=== PATIENT | female | born 1950 | race African-American/Black ===

== ENCOUNTER 2016-11-05 15:09 | Observation (INO) | payer MEDICARE ==
[~2016-11-05] VITALS: Ht 160 cm; Wt 66.4 kg
--- NOTE | ~2016-11-05 | HEMODYNAMI ---
PATIENT:SANTOS JOE MEDICAL RECORD: [id number] : 46 LOC[facility] [id number] ADMISSION DATE: 11/05/16 Generatedon:11/06/201610:51 Patient name: SANTOS JOE Patient #: [id number] : 1950 Date of study: 11/06/2016 Page: Of Hemodynamic Procedure Report Patient Data Patient Demographics Procedure consent was obtained First Name: SANTOS Gender: Female Last Name: TATYANA : 1950 Patient #: [id number] Age: 66 year(s) Race: Black SSN: [id number] Additional ID: [id number] Contact details Address: [address] [place] [address] State: [place] City: [place] Zip code: [address] Past Medical History Allergies Allergen Reaction Date Comments Reported Other allergy 11/06/2016 codeine Admission Admission Data Admission Date: 11/05/2016 Admission Time: 19:13 Arrival Date: 11/05/2016 Arrival Time: 19:13 Admit Source: Other Insurance Payor: Medicare Room #: D.2122 Height (in.): 63 BSA: 1.69 (m2) Height (cm.): 160.02 BMI: 25.86 (kg/m2) Weight (lbs.): 146 Weight (kg.): 66.22 Lab Results Lab Result Date: 11/06/2016 Lab Result Time: 0:00 Biochemistry Name Units Result Min Max BUN mg/dl 22 --(----)-* 7 18 Creatinine mg/dl 1.7 --(----)-* 0.6 1.3 CBC Name Units Result Min Max Hemoglobin g/dl 11.9 *-(----)-- 13.5 17.5 Procedure Procedure Types Cath Procedure Diagnostic Procedure LHC LHC w/Coronaries Peripheral Cath Diagnostic Procedure Cath Peripheral Four Vessel Arteriogram Procedure Description Procedure Date Procedure Date: 11/06/2016 Procedure Start Time: 10:41 Procedure End Time: 10:48 Procedure Staff Name Function Da Lyons MD Performing Physician Val Aguirre RT Scrub Jet Olmedo RN Nurse Janel Keating RT Monitor Indication Angina Procedure Data Cath Procedure Fluoroscopy Diagnostic fluoroscopy Total fluoroscopy Time: 1.6 time: 1.6 min min Diagnostic fluoroscopy Total fluoroscopy dose: 335 dose: 335 mGy mGy Contrast Material Contrast Material Type Amount (ml) Isovue 370 77 Entry Location Entry Primary Successful Side Size Upsize Upsize Entry Closure Succes sful Closure Location (Fr) 1 (Fr) 2 (Fr) Remarks Device Remarks Femoral Right 5 Fr Vascade artery Closure System Estimated blood loss: 5 ml Procedure Complications No complications Procedure Medications Medication Administration Route Dosage Oxygen NC 2 l/min Heparin Flush Bag added to field 2 bags (1000units/500ml NS) 0.9% NaCl I.V. 100 ml/hr Benadryl I.V. 50 mg Radial Cocktail added to field 1 syringe (Verapomil 2mg/Nitro 400mcg/Heparin 1500units) Fentanyl I.V. 50 mcg Versed I.V. 1 mg Fentanyl I.V. 50 mcg Versed I.V. 1 mg Hemodynamics Rest BSA: 1.69 (m2) HGB: 11.9 (g/dl) O2 Consumption: Estimated: 153.8 (ml/min) O2 Con sumption indexed: Estimated:91.01 (ml/min/m) Heart Rate: 66 (bpm) Snapshots Pre Cath Intra NCS Post Cath Vital Signs Time Heart Resp SPO2 NIBP (mmHg) Rhythm Pain Sedation Rate (ipm) (%) Status Level (bpm) 10:23:20 61 18 60 144/66(89) NSR 0 (11) 10(A) , No pain 10:27:42 61 20 97 90/56(74) NSR 0 (11) 10(A) , No pain 10:32:35 62 17 98 119/63(99) NSR 0 (11) 10(A) , No pain 10:36:47 64 18 100 134/59(90) NSR 0 (11) 10(A) , No pain 10:41:05 63 17 100 121/61(104) NSR 0 (11) 9(A) , No pain 10:45:19 63 17 100 98/57(73) NSR 0 (11) 9(A) , No pain 10:48:42 62 18 99 103/48(80) NSR 0 (11) 9(A) , No pain Medications Time Medication Route Dose Verified Delivered Reason Notes Eff ectiveness by by 10:28:01 Oxygen NC 2 l/min Jet Chaudhary Per Honorio Olmedo RN physician RN 10:28:09 Heparin Flush added 2 bags Jet Chaudhary used for Bag to Honorio Olmedo cooperage shop supervisor (1000units/500ml field RN NS) 10:29:00 0.9% NaCl I.V. 100 Jet Veronicay Per ml/hr Honorio Olmedo RN physician RN 10:29:10 Benadryl I.V. 50 mg Jet Chaudhary Per Honorio Olmedo RN physician RN 10:29:20 Radial Cocktail added 1 Jet Chaudhary used for (Verapomil to syringe Honorio Olmedo cooperage shop supervisor 2mg/Nitro field RN 400mcg/Heparin 1500units) 10:40:13 Fentanyl I.V. 50 mcg Jet Chaudhary for Honorio Olmedo RN sedation RN 10:40:19 Versed I.V. 1 mg Jet Veronicay for Honorio Olmedo RN sedation RN 10:42:17 Fentanyl I.V. 50 mcg Jet Chaudhary for Honorio Olmedo RN sedation RN 10:42:21 Versed I.V. 1 mg Jet Chaudhary for Honorio Olmedo RN sedation music industry intern Log Time Note 10:00:03 Jet Olmedo RN sent for patient. Start room use. 10:09:41 Diagnostic Cath Status : Elective 10:10:00 Indication : Angina 10:10:10 Time tracking: Regular hours 10:10:14 Plan of Care:Hemodynamics will remain stable., Cardiac rhythm will remain stable., Comfort level will be maintained., Respiratory function will remain adequate., Patient/ family verbilizes understanding of procedure., Procedure tolerated without complication., Recovers from procedure without complications.. 10:10:33 Informed consent obtained and on chart 10:10:48 Arrival Date: 11/05/2016 7:13:00 PM 10:10:55 Admit Source: Other 10:10:56 Insurance Payor : Medicare 10:11:28 Lab Result : Creatinine 1.7 mg/dl 10::28 Lab Result : BUN 22 mg/dl 10:11:28 Lab Result : Hemoglobin 11.9 g/dl 10:15:01 Patient received from Med II to CCL 1 Alert and oriented. Tansferred to table in Supine position. 10:15:03 Warm blankets applied, and byron hugger turned on for patient comfort. 10:15:03 Correct patient and procedure confirmed by team. 10:15:05 ECG and BP/O2 sat monitors applied to patient. 10:22:01 Vital chart was started 10::29 Baseline sample Acquired. 10::35 Rhythm: sinus rhythm , paced 10::38 Full Disclosure recording started 10::42 H&P Date Dictated: 11/06/2016 New H&P dictated by physician.. 10:26:43 Pre-procedure instructions explained to patient. 10::44 Pre-op teaching completed and patient verbalized understanding. 10::45 Family in waiting room. 10::46 Patient NPO since Midnight. 10::57 Patient allergic to Other allergycodeine 10:27:00 Is the patient allergic to Iodine/contrast media? No. 10:27:01 Was the patient premedicated? No 10:27:01 Is patient on blood thinner?Yes 10:27:05 ACC The patient was administered the following blood thiners within the last 24 hours: ACCPlavix 10:27:07 Patient diabetic? Yes. 10:27:08 If diabetic: On Metformin? No 10:27:12 Previous problem with sedation/anesthesia? No ? 10:27:14 Snore? No 10:27:15 Sleep apnea? No 10:27:16 Deviated septum? No 10:27:17 Opens mouth fully? Yes 10:27:18 Sticks out tongue? Yes 10:27:20 Airway obstruction? No ? 10:27:25 Dentures? Yes in tight 10:27:29 Pre procedure: right dorsailis pedis pulse 1+ Palpable, but thready & weak; easily obliterated 10:27:31 Patient pain scale 0/10 ?. 10:27:39 IV patent on arrival in left forearm with 0.9% NaCl at KVO. 10:27:42 Lab results completed and on chart. 10:27:46 Right Radial & Right Groin area was prepped with chlora-prep and draped in sterile fashion 10:27:47 Alarms reviewed by R. N. 10::47 Sharps counted by scrub and verified by R.N. 10:28:01 Oxygen 2 l/min NC was given by Jet Olmedo RN; Per physician; 10:28:09 Heparin Flush Bag (1000units/500ml NS) 2 bags added to field was given by Jet Olmedo RN; used for procedure; 10::20 Patient Height : 160.02 cm 10::24 Patient Weight : 66.22 kg 10:28:50 Baseline sample Acquired. 10:29:00 0.9% NaCl 100 ml/hr I.V. was given by Jet Olmedo RN; Per physician; 10:29:10 Benadryl 50 mg I.V. was given by Jet Olmedo RN; Per physician; 10:29:20 Radial Cocktail (Verapomil 2mg/Nitro 400mcg/Heparin 1500units) 1 syringe added to field was given by Jet Olmedo RN; used for procedure; 10:34:41 Physician paged 10:34:43 Zero performed for pressure channel P1 10:39:53 Physician arrived 10:39:53 --------ALL STOP TIME OUT------ 10:39:54 Final Timeout: patient, procedure, and site verified with staff and physician. All members of the team are in agreement. 10:39:57 Right Radial & Right Groin site verified by team. 10:39:59 Physical assessment completed. ASA score P 2 - A patient with mild systemic disease as per Da Lyons MD. 10:40:02 Sedation plan: IV Moderate Sedation Versed, Fentanyl 10:40:09 Use device set Radial Dx 10:40:10 Acist Syringe opened to sterile field. 10:40:11 Cardinal Cath Pack opened to sterile field. 10:40:11 Bag Decanter opened to sterile field. 10:40:12 St Arvind 260cm J .035 wire opened to sterile field. 10:40:13 Fentanyl 50 mcg I.V. was given by Jet Olmedo RN; for sedation; 10:40:13 Acist Hand Control opened to sterile field. 10:40:14 Acist Manifold opened to sterile field. 10:40:15 Tegaderm 4 x 4 opened to sterile field. 10:40:19 Versed 1 mg I.V. was given by Jet Olmedo RN; for sedation; 10:40:21 Procedure started. 10:41:12 Dr Lyons deciding to gain femoral access; adding 4 vessel procedure 10:41:30 Terumo 5Fr [place] Sheath opened to sterile field. 10:41:37 Cordis Infinity 5Fr Multipack catheter opened to sterile field. 10:41:46 Local anesthetic to right femoral artery with Lidocaine 2% by Da Lyons MD.INITIAL ACCESS ONLY 10:41:54 A 5 Fr sheath was inserted into the Right Femoral artery 10:42:03 5 Fr pigtail guide catheter was inserted over the wire 10:42:09 LV gram done using QUIJANO 10:42:12 Injector settings: Ml/sec: 5, Volume: 15, 10:42:17 Fentanyl 50 mcg I.V. was given by Jet Olmedo RN; for sedation; 10:42:19 EF : 20 % 10:42:21 Versed 1 mg I.V. was given by Jet Olmedo RN; for sedation; 10:42:21 Catheter removed. 10:42:25 5 Fr jl 4 guide catheter was inserted over the wire 10:42:30 LCA angiography performed. 10:42:32 Injector settings: Ml/sec: 3, Volume: 6, 10:43:22 Catheter removed. 10:43:30 5 Fr 3drc guide catheter was inserted over the wire 10:44:16 RCA angiography performed. 10:44:24 Injector settings: Ml/sec: 3, Volume: 6, 10:44:35 Bilateral carotid angiography performed. 10:44:51 Procedure type changed to Cath procedure, Diagnostic procedure, LHC, LHC w/Coronaries, Peripheral Cath Diagnostic Procedure, Cath Peripheral, Four Vessel Arteriogram 10:46:00 Catheter removed. 10:46:07 Vascade 5Fr Closure Device opened to sterile field. 10:46:21 Sheath removed intact; hemostasis achieved with Vascade Closure System to the Right Femoral artery. 10:46:23 Procedure ended.(Physican Out) 10:47:13 Fluoroscopy time 01.60 minutes. 10:47:18 Fluoroscopy dose: 335 mGy 10:47:18 Flurop Dose total: 335 10:47:23 Contrast amount:Isovue 370 77ml. 10:47:25 Sharps counted by scrub and verified by R.N. 10:47:27 Insertion/operative site no bleeding no hematoma. 10:47:30 Post-op/insertion site Right Femoral artery dressed using a 4 x 4 and Tegaderm. 10:47:32 Post right femoral artery:stable 10:47:34 Post Procedure Pulses reassessed and unchanged 10:47:36 Post procedure rhythm: unchanged. 10:47:38 Estimated blood loss: 5 ml 10:47:39 Post procedure instruction explained to patient.Patient verbalizes understanding. 10:47:40 Patient needs reinforcement of post procedure teaching. 10:47:41 Procedure and supply charges have been captured, reviewed, submitted and are correct. 10:47:53 Procedure Complication : No complications 10:48:02 Vital chart was stopped 10:48:04 See physician's report for complete and final results. 10:48:07 Report given to [facility]. 10:48:09 Patient transfered to [facility] with Stretcher. 10:48:11 Procedure ended. 10:48:11 Full Disclosure recording stopped 10:48:17 End room use (Document Last) Device Usage Item Name Manufacture Quantity Catalog Number Hospital Part Current Minimal Lot# / Charge Number Stock Stock Serial# Code Acist Acist 1 98950 201076 143742 950606 20 Syringe Medical Systems Inc Cardinal Cardinal 1 [id number] 594185 32078 437138 5 Cath Pack Health Bag Microtek 1 2002S 155302 39082 413322 [address] Arvind 1 [id number] 666676 139820 547604 30 260cm J .035 wire Acist Acist 1 86862 670028 903886 072409 5 Hand Medical Control Systems Inc Acist Acist 1 49794 657173 618753 213046 5 Manifold Medical Systems Inc Tegaderm 3M 1 1626W 843536 610193 263046 5 4 x 4 Terumo Terumo 1 [id number] 205317 801961 279089 40 5Fr [place] Sheath Cordis Cardinal 1 [id number] 220202 19980 943303 30 ZANK.mobi 5Fr Multipack catheter Vascade Cardiva 1 [id number] 482142 53649 079860 10 5Fr Medical, Closure Inc. Device Signature Audit [place] Stage Time Signature Unsigned Intra-Procedure 11/06/2016 Janel Keating 10:51:24 AM RT(R) Signatures Monitor : Janel Keating RT Signature : Date : Time : [place] [id number] [facility] [place] [address]
[2016-11-05 17:31] LABS: BASOPHILS 1.4 % (0.0-2.0); HEMATOCRIT 37.9 % (36.0-48.0); HEMOGLOBIN 11.9 g/dL (12-16); IMMATURE GRANULOCYTES 0.2 % (0-5); MCH 30.3 pg (26.0-34.0); MCHC 31.4 g/dL (31.0-37.0); MCV 96.4 fL (80.0-100.0); MEAN PLATELET VOLUME 12.7 fL (7.4-10.4); NEUTROPHILS 64.4 % (40-80); PLATELET COUNT 69 10x3/uL (130-400); RBC 3.93 10x6/uL (4.00-5.40); RDW 14.1 % (11.5-14.5); WBC 5.6 10x3/uL (4.8-10.8)
[2016-11-05 17:52] LABS: ALBUMIN 3.7 g/dL (3.4-5.0); BILIRUBIN - TOTAL 0.63 mg/dL (0.2-1.3); CALCIUM 9.2 mg/dL (8.5-10.1); CARBON DIOXIDE 31.6 mmol/L (21.0-32.0); CREATININE - SERUM 1.7 mg/dL (0.6-1.3); POTASSIUM - SERUM 3.6 mmol/L (3.5-5.1); PROTEIN - SERUM 6.7 g/dL (6.4-8.2)
[2016-11-05 18:06] LABS: TROPONIN-I 0.463 ng/mL (0.000-0.060)
[2016-11-05 18:22] LABS: APTT 29.8 SECONDS (22.8-39.4)
[2016-11-05 18:24] LABS: INR 1.26 (0.85-1.17); PROTIME 15.7 SECONDS (11.6-15.0)
[2016-11-05 19:09] LABS: CKMB 3.6 U/L (0.0-3.6); CREATINE KINASE 183 UL (21-215)
--- NOTE | 2016-11-05 20:03 | NUR ---
REPORT CALLED FROM ER FROM SELAM VENEGAS. STATES THAT PT WAS GIVEN ORDERED LISINOPRIL, PLAVIX, LOVENOX, AND FUROSEMIDE WHILE IN ER. PT NOW ENROUTE TO ROOM 2121 FROM ER.
--- NOTE | 2016-11-05 20:15 | NUR ---
ADMITTED TO ROOM 2122 VIA WHEELCHAIR. ADMISSION ASSESSMENT/HISTORY INITIATED. HOME MEDS REVIEWED. ORIENTATION TO ROOM. INITIATE PLAN OF CARE.
[2016-11-05 21:48] VITALS: BP 150/68
[2016-11-06 00:28] VITALS: BP 146/86; Ht 160 cm; Wt 66.4 kg
[2016-11-06 00:30] VITALS: BP 113/50
[2016-11-06 04:30] VITALS: BP 147/50
--- NOTE | 2016-11-06 06:30 | NUR ---
PT HAS RESTED AND IS TALKING ABOUT THE OF HER SISTER. VOICING NO PAIN OR DISCOMFORT. SALINE LOCK TO LEFT HAND. CPOC. NPO UNTIL SEEN BY PROCESS DEVELOPMENT ENGINEER.
--- NOTE | 2016-11-06 07:15 | NUR ---
ASSESSMENT DONE. DENIES NEEDS.
[2016-11-06 08:22] VITALS: BP 125/68
[2016-11-06] MEDS ORDERED: NEURONTIN 300300 MG PO (08:41)
[2016-11-06] MEDS ORDERED: MEGACE40 MG PO (08:42)
[2016-11-06] MEDS ORDERED: ALDACTONE25 MG PO (08:42)
[2016-11-06] MEDS ORDERED: COREG12.5 MG PO (08:42)
[2016-11-06] MEDS ORDERED: PRAVASTATIN SOD10 MG PO (08:43)
[2016-11-06] MEDS ORDERED: ELIQUIS2.5 MG (08:44)
[2016-11-06] MEDS ORDERED: ISOSORBIDE MONO30 M1 (08:44)
[2016-11-06] MEDS ORDERED: K-DUR20 MEQ PO (08:44)
[2016-11-06] MEDS ORDERED: BUMEX 1 MG TAB1 MG PO (08:45)
--- NOTE | 2016-11-06 09:40 | NUR ---
RESTS IN BED WITH CALL LIGT IN REACH. BALTAZAR NEEDS AT THIS TIME. WILL MONITOR.
--- NOTE | 2016-11-06 10:17 | NUR ---
TO TRAFFIC RATE COMPUTER PER BED
--- NOTE | 2016-11-06 11:00 | NUR ---
RETURN FROM TABLE ASSEMBLER METAL PER BED. RT ROSIBEL CORTES C/Leslie. FEMI OLIVAS
[2016-11-06 11:42] LABS: BASOPHILS 1.6 % (0.0-2.0); HEMATOCRIT 39.2 % (36.0-48.0); HEMOGLOBIN 12.7 g/dL (12-16); LYMPHOCYTES 17.9 % (15-50); MCH 30.7 pg (26.0-34.0); MCHC 32.4 g/dL (31.0-37.0); MCV 94.7 fL (80.0-100.0); MEAN PLATELET VOLUME 13.2 fL (7.4-10.4); MONOCYTES 12.6 % (2-11); NEUTROPHILS 53.9 % (40-80); PLATELET COUNT 71 10x3/uL (130-400); RBC 4.14 10x6/uL (4.00-5.40); RDW 13.9 % (11.5-14.5); WBC 4.3 10x3/uL (4.8-10.8)
[2016-11-06 12:01] LABS: PLATELET ESTIMATE DECREASED
[2016-11-06 12:08] LABS: ANION GAP 11.4 mmol/L (8-16); CALCIUM 7.8 mg/dL (8.5-10.1); CARBON DIOXIDE 32.6 mmol/L (21.0-32.0); CREATININE - SERUM 1.5 mg/dL (0.6-1.3)
--- NOTE | 2016-11-06 14:43 | NUR ---
DC GIVEN TO PT
--- NOTE | 2016-11-06 16:13 | NUR ---
DC HOME PER PERSONAL CAR
--- NOTE | 2016-11-11 11:11 | OP ---
PATIENT NAME: SANTOS JOE MEDICAL RECORD: [id number] :46 LOCATION:D.M2 D.2122 ADMISSION DATE:11/05/16 SURGEON: BARNEY CAMEJO MD DATE OF OPERATION: 11/06/2016 PROCEDURES: Four-vessel carotid vertebral angiography. INDICATION: Recurrent syncope. DESCRIPTION OF PROCEDURE: After informed consent was obtained and after explanation of risks, benefits, as well as alternative therapies, the patient elected to proceed with angiogram and 4 vessel. The right femoral area was prepped and draped in normal sterile fashion. The right femoral artery was cannulated via modified Seldinger technique with placement of 5-Grenadian sheath. All catheters exchanged through this sheath. FINDINGS: There was a subselection of each subclavian as well as the left carotid. RIGHT SIDE: The common internal and external carotids have mild plaquing, none greater than 10% to 20%. No flow-limiting stenosis. Vertebral arteries devoid of disease. LEFT SYSTEM: The common internal and external carotids have mild plaquing, none greater than 10% to 20%. No flow-limiting stenosis. Vertebral arteries devoid of disease. OVERALL IMPRESSION: Minimal carotid vascular disease is present. No flow limiting stenosis. Syncope is not secondary to carotid vascular insufficiency. TRANSINT:[id number] Voice Confirmation ID: [id number] DOCUMENT ID: [id number] BARNEY CAMEJO MD at 1111 CC: [id number] DICTATION DATE: 11/06/16 1057 CERAMIC ENGINEERING PROFESSOR: 11/06/16 1106 DIS IN 11/06/16 [id number] [place] [address]
--- NOTE | 2016-11-11 11:11 | HP ---
PATIENT: SANTOS COVINGTON MEDICAL RECORD: [id number] ACCOUNT: [id number] LOCATION:[address] : [birth year] ADMISSION DATE: 11/05/16 HISTORY AND PHYSICAL EXAMINATION DIAGNOSES: 1. Non-Q-wave myocardial infarction. 2. Coronary artery disease. 3. Previous myocardial infarction times 6. 4. Cardiomyopathy, chronic systolic dysfunction. 5. Congestive heart failure, chronic systolic dysfunction. 6. ____. 7. Hypertension. 8. Carotid vascular disease. HISTORY OF PRESENT ILLNESS: Mrs. Covington presents with anginal symptomatology, shortness of breath and syncope. She has an extensive cardiac history followed by ____ at [facility]. She has an ICD and a cardiomyopathy as well followed by [facility]. Her chest pain started yesterday. She presented to the Emergency Room. Her troponin is positive for a non-Q-wave myocardial infarction. She was in heart failure; however, with IV Lasix. She is now markedly improved from a respiratory standpoint. PHYSICAL EXAMINATION: GENERAL APPEARANCE: Well-nourished, well-developed, appears stated age. Level of distress, comfortable. PSYCHIATRIC: Mental status, alert, normal affect. Orientation, oriented to time, place and person. EYES: Lids and conjunctiva, noninjected. No discharge, no pallor. ENT: Lips, teeth, gums, normal dentition. Oropharynx, no cyanosis, no pallor. NECK: Carotid arteries, bilateral normal upstroke, no bruits, no thrills. JUGULAR VEINS: No jugular venous pressure or distention. CERVICAL LYMPH NODES: Nontender, nonenlarged. THYROID: Not enlarged. Nontender. No nodules. LUNGS: Respiratory effort, unlabored. CHEST: Normal curvature. No thoracic deformity. No chest wall tenderness. Percussion, resonant. Auscultation, clear. No wheezes, no rales, no rhonchi. CARDIOVASCULAR: Precordial exam, nondisplaced. No heaves or pericardial thrills. Rate and rhythm, regular. Heart sounds, normal S1, normal S2. No S3, no gallop, no rub. Systolic murmur, not heard. Diastolic murmur, not heard. EXTREMITIES: No cyanosis, no edema. Peripheral pulses, full and equal in all extremities, except as noted. No bruits appreciated. ABDOMEN: Soft, nondistended. Normal aorta. No bruit. Nontender. No masses. Liver, nontender, no hepatomegaly. Spleen, nontender, no splenomegaly. MUSCULOSKELETAL: No joint tenderness. No joint swelling. No erythema. NEUROLOGICAL: Normal gait, normal strength, normal tone. SKIN: Warm and dry. REVIEW OF SYSTEMS: The patient reports easy bruising but reports no swollen glands. The patient reports no fever, no night sweats, no significant weight gain, no significant weight loss. No significant exercise tolerance. The patient reports no dry eyes, no irritation, no vision change. Patient reports no difficulty hearing and no ear pain. Patient reports no frequent nose bleeds or nose and sinus problems. Patient reports on arm pain on exertion. No shortness of breath while lying down. No history of heart murmur. Patient HISTORY AND PHYSICAL [id number] SANTOS COVINGTON reports no cough, no wheezing or coughing up blood. Patient reports no abdominal pain, no vomiting. Normal appetite. No diarrhea and not vomiting blood. No nausea and no constipation. Patient reports no incontinence. No difficulty urinating. No hematuria. No increased frequency. Patient reports no muscle aches. No weakness, no arthralgias, no back pain. No swelling of the extremities. Patient reports no abnormal mole, no jaundice, no rashes. Reports no loss of consciousness. No weakness and no numbness. No seizures, dizziness, or headaches. The patient reports no depression, no sleep disturbance, feeling safe in a relationship and no alcohol abuse. Patient reports on fatigue. Reports no runny nose or sinus pressure. No itching, no hives, and no frequent sneezing. OVERALL IMPRESSION: Non-Q-wave myocardial infarction with concomitant heart failure. She as well had 3 episodes of syncope yesterday. She has a history of carotid vascular disease. We will proceed with coronary angiography and carotid angiography. Further care depends upon findings of these study. TRANSINT:[id number] Voice Confirmation ID: [id number] DOCUMENT ID: [id number] BARNEY CAMEJO MD at 1111 CC: [id number] DICTATION DATE: 11/06/16 1010 ADMISSIONS MANAGER RN: 11/06/16 1042 DIS IN 11/06/16 [id number] [place] [address]
--- NOTE | 2016-11-11 11:11 | OP ---
PATIENT NAME: SANTOS JOE MEDICAL RECORD: [id number] :46 LOCATION:D.M2 D.2122 ADMISSION DATE:11/05/16 SURGEON: BARNEY CAMEJO MD DATE OF OPERATION: 11/06/2016 PROCEDURES: 1. Left heart catheterization. 2. Selective coronary angiography. 3. Left ventriculogram. 4. ICD interrogation. INDICATION: Non-Q-wave myocardial infarction, shortness of breath, cardiomyopathy, and syncope. PROCEDURE IN DETAIL: After informed consent was obtained and after detailed explanation of risks, benefits as well as alternative therapies, the patient elected to proceed with angiogram and angioplasty. The right femoral area had a preexisting sheath from 4-vessel carotid and vertebral angiography. All catheters exchanged through this sheath. FINDINGS: ICD was interrogated. No significant dysrhythmias were present that would explain her symptomatology. She does have an increased outflow index compatible with fluid overload, CHF. LEFT HEART CATHETERIZATION: Left ventriculogram was performed in standard 30-degree QUIJANO view reveals global hypokinesis throughout all segments. Overall ejection fraction estimated 20%. SELECTIVE CORONARY ANGIOGRAPHY: Left main, left anterior descending, left circumflex, and right coronary artery are all smooth-walled vessels with no angiographic evidence of coronary artery disease. OVERALL IMPRESSION: Nonischemic cardiomyopathy, ejection fraction 20% with no coronary artery disease. No dysrhythmias present on ICD interrogation, but fluid overload, congestive heart failure state secondary to the nonischemic cardiomyopathy. Center medical management on treatment of the cardiomyopathy and fluid overload state. TRANSINT:[id number] Voice Confirmation ID: [id number] DOCUMENT ID: [id number] BARNEY CAMEJO MD at 1111 CC: [id number] DICTATION DATE: 11/06/16 1059 PAPER CUP MACHINE TENDER: 11/06/16 1111 DIS IN 11/06/16 [place] [address]
== END 2016-11-06 16:13 | disposition home or self-care (01) ==
LOC: D.ER → D.M2 19:13 → OBSVTIME 19:13 → D.M2 11-06 16:13
PROVIDERS: Family Medicine; Nurse Practitioner Acute Care; ADMIT Internal Medicine Interventional Cardiology
DX: I21.4 Non-ST elevation (NSTEMI) myocardial infarction (principal); I25.10 Atherosclerotic heart disease of native coronary artery without angina pectoris; I11.0 Hypertensive heart disease with heart failure; I50.22 Chronic systolic (congestive) heart failure; I42.9 Cardiomyopathy, unspecified; G45.1 Carotid artery syndrome (hemispheric)